=== PATIENT | female | born 1990 ===

== ENCOUNTER → 2019-02-28 12:43 | Outpatient (CLI) | payer BC | END | disposition home or self-care (01) | LOC: LAB 12:43 | DX: D64.89 Other specified anemias (principal); R73.09 Other abnormal glucose; I10 Essential (primary) hypertension; E03.8 Other specified hypothyroidism; E55.9 Vitamin D deficiency, unspecified; J11.1 Influenza due to unidentified influenza virus with other respiratory manifestations ==

== ENCOUNTER → 2020-10-23 | Emergency (ER) | payer OTHER ==
[~2020-10-23] VITALS: Ht 172.7 cm; Wt 90.7 kg
[~2020-10-23] MED LIST: IBU800 MG PO; ORPHENADRINE C100 MG PO; VOLTAREN100 GM TOP
== END | disposition home or self-care (01) ==
LOC: ER 11:51
DX: R07.81 Pleurodynia (principal)